=== PATIENT | female | born 1965 | race Caucasian/White ===

== ENCOUNTER → 2018-03-07 | Outpatient (CLI) | payer OTHER ==
[~2018-03-07] MED LIST: ESTRADIOL 1 MG T1 M1 TOP; MEDROLDOSEPACK PO; estradiol TOP
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
== END ==
LOC: M.PC 04:56
DX: M48.061 Spinal stenosis, lumbar region without neurogenic claudication (principal); R51 Headache